=== PATIENT | female | born 1935 | race Caucasian/White ===

== ENCOUNTER 2022-02-13 23:45 | Inpatient (IN) | payer OTHER ==
[~2022-02-13] VITALS: Ht 167.6 cm; Wt 47.6 kg
[~2022-02-13 23:45] MED LIST: Keflex500 MG PO; LISI20 PO; METOPROLOL TART25 MG PO
[2022-02-14 02:05] LABS: BASOPHILS ABSOLUTE AUTO 0.07 K/mm3 (0.00-0.23); BASOPHILS PERCENT AUTO 1 % (0-2); EOSINOPHILS ABSOLUTE AUTO 0.07 K/mm3 (0.00-0.68); EOSINOPHILS PERCENT AUTO 1 % (0-6); Hematocrit 38.8 % (33.0-51.0); Hemoglobin 13.1 g/dL (11.5-16.0); IMMATURE GRAN ABSOLUTE AUTO 0.17 K/mm3 (0.00-0.10); IMMATURE GRAN PERCENT AUTO 1 % (0-1); LYMPHOCYTES ABSOLUTE AUTO 0.87 K/mm3 (0.84-5.20); LYMPHOCYTES PERCENT AUTO 7 % (21-46); MONOCYTES ABSOLUTE AUTO 1.09 K/mm3 (0.16-1.47); MONOCYTES PERCENT AUTO 9 % (4-13); Mean Corpuscular HGB 28.8 pg (26.0-34.0); Mean Corpuscular HGB Conc 33.8 g/dL (31.5-36.5); Mean Corpuscular Volume 85 fL (80-100); Mean Platelet Volume 9.9 fL (9.1-12.4); NEUTROPHILS ABSOLUTE AUTO 10.54 K/mm3 (1.96-9.15); NEUTROPHILS PERCENT AUTO 82 % (41-73); Platelet Count 228 K/mm3 (150-400); RDW Coefficient Variation 15.3 % (11.7-14.2); RDW Standard Deviation 47.7 fL (35.1-46.3); Red Blood Cell Count 4.55 M/mm3 (3.80-5.20); White Blood Cell Count 12.81 K/mm3 (4.00-11.30)
[2022-02-14 02:10] LABS: International Normalized Ratio 1.35; Prothrombin Time Results 13.9 Sec (9.7-11.5)
[2022-02-14 02:12] LABS: Bun/Creatinine Ratio 24.1 (12.0-20.0); Calcium, Blood 8.8 mg/dL (8.5-10.1); Creatinine, Blood 0.66 mg/dL (0.40-1.00); Potassium, Blood 3.6 mmol/L (3.5-5.5)
[2022-02-14] MEDS ORDERED: Lisinopril2.5 MG (03:27)
--- NOTE | 2022-02-14 05:42 | NUR ---
SHIFT SUMMARY; PATIENT ARRIVED TO MEDICAL FLOOR APPROX 4AM TODAY. SHE IS AO X 4. HOWEVER WAS VERY UNCOMFORTABLE COMPLAINING OF SPASMS IN HER RIGHT LEG FROM HER RIGHT HIP FRACTURE. COMES TO ROOM TO SEE PAITENT AND VERBAL ORDER FOR HARRIS CATHETER PRE SURGICAL AND VALIUM 2.5 WITH FENTNYL 50MCG IVP. PATIENT TOLERATED WELL AND EXPERIENCED ALMOST IMMEDIATE RELIEF. AT THIS TIME SHE IS RESTING COMFORTABLY EYES CLOSED BREATHING EVEN AND UNLABORED. PATIENT FELL AT HOME LANDING ON HER RIGHT SIDE. SHE CALLED EMS AND WAS TRANSPORTED TO HOSPITAL. SHE HAS A 20GAUGE IN HER RIGHT WRIST. IV FLUIDS 75ML HOUR PER ORDER. SHE IS NPO. SHE IS AO X 4. ON ROOM AIR AND NO SKIN ISSUES ARE NOTED. HER RIGHT LEG IS APPROX 6 INCHES SHORTER THAN LEFT AND HER FOOT IS TURNED OUT. HER PULSES ARE STRONG IN FEET. CONSULT CALLED TO ORTHOPEDICS ANSWERING SERVICE.
[2022-02-14 05:54] LABS: Source, Urine Straight Cath
[2022-02-14 06:00] LABS: Appearance, Urine Clear (Clear); Bilirubin, Urine Neg (Neg); Blood, Urine 2+ (Neg); Color, Urine Yellow (P-Yellow); Glucose Qualitative, Urine Neg (Neg); Ketones, Urine Neg (Neg); Leukocyte Esterase, Urine Neg (Neg); Nitrite, Urine Neg (Neg); Protein, Urine Neg (Neg); Urobilinogen, Urine NORM (Normal)
[2022-02-14 06:10] LABS: Bacteria Rare /hpf; Squamous Epithelial Cells Rare /hpf (Few); White Blood Cells, Urine 0-2 /hpf (0-5)
[2022-02-14 09:16] LABS: Influenza A, PCR NEGATIVE (NEGATIVE); Influenza B, PCR NEGATIVE (NEGATIVE); Resp Syncytial Virus, PCR NEGATIVE (NEGATIVE); SARS-Cov-2 (COVID-19) PCR, MMC NEGATIVE (NEGATIVE)
[2022-02-14] MEDS ORDERED: HYDCHL12.5 PO (15:15)
--- NOTE | 2022-02-14 18:12 | NUR ---
02/14/22 181 Valerie Jon PT ENTERED OR WITH HARRIS CATHETER
--- NOTE | 2022-02-14 21:01 | NUR ---
POST OP PT ARRIVED TO [facility] FROM PACU CLOSE TO 1999. PT IS RECOVERING WELL. PT ON 2L O2 TO KEEPS SATS ABOVE 90% ANESTHESIA WEARS OFF. PT MEDICATED WITH IV TORADOL SHORTLY BEFORE ARRIVING TO THE UNIT, PAIN WELL CONTROLLED AT THIS TIME. PT HAS NO N/V. AQUACEL DRESSING INTACT TO RIGHT HIP, WNL. PT APPEARS TO BE RESTING COMFORTABLY.
[2022-02-15 04:22] LABS: BASOPHILS ABSOLUTE AUTO 0.01 K/mm3 (0.00-0.23); BASOPHILS PERCENT AUTO 0 % (0-2); EOSINOPHILS PERCENT AUTO 0 % (0-6); Hematocrit 33.3 % (33.0-51.0); Hemoglobin 10.8 g/dL (11.5-16.0); IMMATURE GRAN ABSOLUTE AUTO 0.06 K/mm3 (0.00-0.10); IMMATURE GRAN PERCENT AUTO 1 % (0-1); LYMPHOCYTES ABSOLUTE AUTO 0.41 K/mm3 (0.84-5.20); LYMPHOCYTES PERCENT AUTO 4 % (21-46); MONOCYTES ABSOLUTE AUTO 0.68 K/mm3 (0.16-1.47); MONOCYTES PERCENT AUTO 7 % (4-13); Mean Corpuscular HGB 28.4 pg (26.0-34.0); Mean Corpuscular HGB Conc 32.4 g/dL (31.5-36.5); Mean Corpuscular Volume 88 fL (80-100); Mean Platelet Volume 9.7 fL (9.1-12.4); NEUTROPHILS ABSOLUTE AUTO 8.71 K/mm3 (1.96-9.15); NEUTROPHILS PERCENT AUTO 88 % (41-73); Platelet Count 181 K/mm3 (150-400); RDW Coefficient Variation 15.6 % (11.7-14.2); RDW Standard Deviation 50.4 fL (35.1-46.3); White Blood Cell Count 9.87 K/mm3 (4.00-11.30)
[2022-02-15 04:53] LABS: Albumin/Globulin Ratio 1.2 (0.8-1.8); Bilirubin, Total 1.4 mg/dL (0.1-1.0); Bun/Creatinine Ratio 23.4 (12.0-20.0); Calcium, Blood 8.4 mg/dL (8.5-10.1); Creatinine, Blood 0.73 mg/dL (0.40-1.00); Globulin, Blood 2.6 g/dL (2.2-4.0); Magnesium, Blood 2.4 mg/dL (1.6-2.4); Potassium, Blood 4.7 mmol/L (3.5-5.5); Total Protein, Blood 5.6 g/dL (6.4-8.2)
--- NOTE | 2022-02-15 05:26 | NUR ---
SHIFT SUMMARY PT POD 0 RIGHT HIP REPAIR, SHE HAS DONE WELL POST OP AND HAS NOT COMPLAINED OF ANY PAIN. PT DROWSY AND HAS SLEPT MOST OF THE SHIFT, BUT EASILY AWAKES AND CONVERSES WITH ME. NO NAUSEA OR VOMITTING, BP A LITTLE SOFTER SINCE SURGERY BUT MAP WNL. NO S/S OF BLEEDING. DRESSING INACT TO RIGHT HIP WITH SCANT DRAINAGE. OTHER SYSTEMS WNL, PT AFEBRILE. HARRIS PATENT AND DRAINING. BED IN LOWEST POSITION, CALL LIGHT WITHIN REACH.
--- NOTE | 2022-02-15 11:42 | NUR ---
DR LAWSON IN TO SEE PT.
--- NOTE | 2022-02-15 14:42 | NUR ---
SHIFT SUMMARY PT A&OX4, VSS/RA, MELLISA PO, VOIDING BSC, AMB SBA FWW/GB TTWB TO CHAIR/BSC, PAIN MANAGED WITH NORCO 5 MG PRN. EVAL'D BY PHYSICAL THERAPY, SNF RECOMMENDED. POD1 R HIP NAIL, AQUACEL CDI. WILL REPORT TO ONCOMING NOC RN.
--- NOTE | 2022-02-16 04:11 | NUR ---
SHIFT SUMMARY NO ACUTE CHANGES THIS SHIFT. PT RESTED WELL. AQUACEL DRESSING TO RIGHT HIP APPEARS DRY AND INTACT. UP TO BSC 1-2 MAX ASSIST TTWB WITH FWW + GB. 1 DEXTER FOR PAIN MANAGMENT. IV SL. USES CALL LIGHT APPRORIATELY.
[2022-02-16 05:08] LABS: BASOPHILS ABSOLUTE AUTO 0.03 K/mm3 (0.00-0.23); BASOPHILS PERCENT AUTO 0 % (0-2); EOSINOPHILS ABSOLUTE AUTO 0.06 K/mm3 (0.00-0.68); EOSINOPHILS PERCENT AUTO 1 % (0-6); Hematocrit 27.9 % (33.0-51.0); Hemoglobin 9.3 g/dL (11.5-16.0); IMMATURE GRAN ABSOLUTE AUTO 0.03 K/mm3 (0.00-0.10); IMMATURE GRAN PERCENT AUTO 0 % (0-1); LYMPHOCYTES ABSOLUTE AUTO 1.03 K/mm3 (0.84-5.20); LYMPHOCYTES PERCENT AUTO 11 % (21-46); MONOCYTES ABSOLUTE AUTO 1.11 K/mm3 (0.16-1.47); MONOCYTES PERCENT AUTO 12 % (4-13); Mean Corpuscular HGB 28.6 pg (26.0-34.0); Mean Corpuscular HGB Conc 33.3 g/dL (31.5-36.5); Mean Corpuscular Volume 86 fL (80-100); Mean Platelet Volume 10.3 fL (9.1-12.4); NEUTROPHILS ABSOLUTE AUTO 6.81 K/mm3 (1.96-9.15); NEUTROPHILS PERCENT AUTO 75 % (41-73); Platelet Count 177 K/mm3 (150-400); RDW Coefficient Variation 14.9 % (11.7-14.2); RDW Standard Deviation 47.2 fL (35.1-46.3); Red Blood Cell Count 3.25 M/mm3 (3.80-5.20); White Blood Cell Count 9.07 K/mm3 (4.00-11.30)
[2022-02-16 05:31] LABS: Bun/Creatinine Ratio 25.8 (12.0-20.0); Calcium, Blood 8.1 mg/dL (8.5-10.1); Creatinine, Blood 0.7 mg/dL (0.40-1.00); Potassium, Blood 4.2 mmol/L (3.5-5.5)
--- NOTE | 2022-02-16 14:11 | NUR ---
Upon receiving a spiritual care referral, I visit pt. Pt has Soni white, bedside. Pt explains about the events that led to her hospitalization and about the plan to transport her to [facility]. They talk about the solid family and katlyn support she has. Pt voices her gratitude for the love and prayers that surround her during this challenging time. I normalize pt's experience and provide therapeutic listening and prayer. Pt and Soni respond well and express appreciation for the visit.
[2022-02-16 17:17] LABS: Influenza A, PCR NEGATIVE (NEGATIVE); Influenza B, PCR NEGATIVE (NEGATIVE); Resp Syncytial Virus, PCR NEGATIVE (NEGATIVE); SARS-Cov-2 (COVID-19) PCR, MMC NEGATIVE (NEGATIVE)
--- NOTE | 2022-02-16 17:41 | NUR ---
DISCHARGE POD 2 GAMMA NAIL OF R HIP, AQUACEL INPLACE, C/D/I. 1P STAND/PIVOT ASSIST WITH FWW & GB, TTWB. PATIENT TOLERATING WELL, MINIMAL PAIN, MEDICATED WITH NORCO PER EMAR. VSS ON RA. EATING, DRINKING, & VOIDING WELL. REPORT CALLED TO YANET HENRIQUEZ AT [facility]. ESCORTED OUT VIA W/C WITH TRANSPORT.
== END 2022-02-16 17:45 | DRG 481 ==
LOC: ER 23:45 → MEDS 02-14 02:38 → SURS 02-14 02:38 → MEDS 02-14 03:42 → SURS 02-14 16:12
PROVIDERS: Family Medicine; Orthopaedic Surgery; Student in an Organized Health Care Education/Training Program; ADMIT Internal Medicine
PROC: 0QS636Z Reposition Right Upper Femur with Intramedullary Internal Fixation Device, Percutaneous Approach (ICD-10-PCS; principal; 2022-02-14 15:15)
DX: S72.141A Displaced intertrochanteric fracture of right femur, initial encounter for closed fracture (principal); J96.11 Chronic respiratory failure with hypoxia; R64 Cachexia; Z68.1 Body mass index [BMI] 19.9 or less, adult; M80.88XA Other osteoporosis with current pathological fracture, vertebra(e), initial encounter for fracture; Z20.822 Contact with and (suspected) exposure to COVID-19; F17.210 Nicotine dependence, cigarettes, uncomplicated; J40 Bronchitis, not specified as acute or chronic; D64.89 Other specified anemias; I10 Essential (primary) hypertension; Z87.440 Personal history of urinary (tract) infections; Z90.49 Acquired absence of other specified parts of digestive tract; Z90.710 Acquired absence of both cervix and uterus; Z79.899 Other long term (current) drug therapy; W01.0XXA Fall on same level from slipping, tripping and stumbling without subsequent striking against object, initial encounter; Y92.009 Unspecified place in unspecified non-institutional (private) residence as the place of occurrence of the external cause
CPT/HCPCS: 0241U; 36415; 72128; 72192; 73502; 73552; 80048; 80053; 81001; 83735; 84100; 85025; 85610; 85730; 93005; 93010; 94760; 96374; 96375; 97110; 97116; 97162; 97166; 97530; 97535; 99285-25; A9270; C1713; J0690; J1100; J1885; J2270; J2370; J2405; J2704; J3010; J3360; J7030; J7120

== ENCOUNTER → 2023-08-06 | Outpatient (CLI) | payer OTHER ==
[~2023-08-06] MED LIST changes: +HYDCHL12.5 PO; +Lisinopril2.5 MG
[2023-08-08 07:08] LABS: CREATININE, SERUM 1.02 mg/dL (0.57-1.00); POTASSIUM, SERUM 4.5 mmol/L (3.5-5.2)
== END ==
LOC: LAB SHORT 15:39 → LAB 15:39
PROVIDERS: Internal Medicine
DX: I10 Essential (primary) hypertension (principal)
CPT/HCPCS: 80048

== ENCOUNTER 2024-06-25 09:24 | Emergency (ER) | payer OTHER ==
[~2024-06-25] VITALS: Ht 160 cm; Wt 59.0 kg
[2024-06-25 10:42] LABS: BASOPHILS ABSOLUTE AUTO 0.09 K/mm3 (0.00-0.23); BASOPHILS PERCENT AUTO 1 % (0-2); EOSINOPHILS ABSOLUTE AUTO 0.03 K/mm3 (0.00-0.68); EOSINOPHILS PERCENT AUTO 0 % (0-6); Hematocrit 41.8 % (33.0-51.0); Hemoglobin 13.7 g/dL (11.5-16.0); IMMATURE GRAN ABSOLUTE AUTO 0.04 K/mm3 (0.00-0.10); IMMATURE GRAN PERCENT AUTO 1 % (0-1); LYMPHOCYTES ABSOLUTE AUTO 0.96 K/mm3 (0.84-5.20); LYMPHOCYTES PERCENT AUTO 12 % (21-46); MONOCYTES PERCENT AUTO 10 % (4-13); Mean Corpuscular HGB 28.2 pg (26.0-34.0); Mean Corpuscular HGB Conc 32.8 g/dL (31.5-36.5); Mean Corpuscular Volume 86 fL (80-100); Mean Platelet Volume 9.3 fL (9.1-12.4); NEUTROPHILS ABSOLUTE AUTO 6.06 K/mm3 (1.96-9.15); NEUTROPHILS PERCENT AUTO 76 % (41-73); Platelet Count 247 K/mm3 (150-400); RDW Coefficient Variation 16.4 % (11.7-14.2); RDW Standard Deviation 50.6 fL (35.1-46.3); Red Blood Cell Count 4.85 M/mm3 (3.80-5.20); White Blood Cell Count 7.98 K/mm3 (4.00-11.30)
[2024-06-25 11:06] LABS: Albumin, Blood 3.3 g/dL (3.4-5.0); Albumin/Globulin Ratio 1.1 (0.8-1.8); Bilirubin, Total 1.1 mg/dL (0.1-1.0); Bun/Creatinine Ratio 25.1 (12.0-20.0); Calcium, Blood 9.6 mg/dL (8.5-10.1); Creatinine, Blood 0.92 mg/dL (0.40-1.00); Globulin, Blood 2.9 g/dL (2.2-4.0); Magnesium, Blood 2.3 mg/dL (1.6-2.4); Potassium, Blood 4.4 mmol/L (3.5-5.5); Total Protein, Blood 6.2 g/dL (6.4-8.2)
[2024-06-25] MEDS ORDERED: NS 1,000 ML IV SCH (12:50)
[2024-06-25 13:39] LABS: Source, Urine Clean Catch
[2024-06-25 13:44] LABS: Appearance, Urine Clear (Clear); Bilirubin, Urine Neg (Neg); Blood, Urine 2+ (Neg); Color, Urine Amber (P-Yellow); Glucose Qualitative, Urine 2+ (Neg); Ketones, Urine Neg (Neg); Leukocyte Esterase, Urine Neg (Neg); Nitrite, Urine Neg (Neg); Protein, Urine 2+ (Neg); Urobilinogen, Urine 1+ (Normal)
[2024-06-25 13:52] LABS: Bacteria Few /hpf; Squamous Epithelial Cells Few /hpf (Few); White Blood Cells, Urine 0-2 /hpf (0-5)
[2024-06-25 13:53] LABS: Hyaline Casts 0-2 /lpf (0-2)
[2024-06-25 15:15] VITALS: BP 139/76
== END 2024-06-25 15:50 | disposition home or self-care (01) ==
LOC: ER 09:24
PROVIDERS: Physician Assistant; Student in an Organized Health Care Education/Training Program
DX: R55 Syncope and collapse (principal); J44.9 Chronic obstructive pulmonary disease, unspecified; F17.200 Nicotine dependence, unspecified, uncomplicated; Z79.899 Other long term (current) drug therapy; I10 Essential (primary) hypertension
CPT/HCPCS: 80053; 81001; 83735; 85025; 93005; 93010; 96360; 99285-25; J7030

== ENCOUNTER 2025-01-01 04:22 | Inpatient (IN) | payer OTHER ==
[~2025-01-01] VITALS: Ht 152.4 cm; Wt 41.2 kg
[2025-01-01 04:39] LABS: pH Blood Venous 7.35 (7.34-7.37)
[2025-01-01] MEDS ORDERED: CefTRIAXone Sodium 1,000 MG in NS 50 ML IV ONE (04:40)
[2025-01-01 04:47] LABS: BASOPHILS ABSOLUTE AUTO 0.09 K/mm3 (0.00-0.23); BASOPHILS PERCENT AUTO 1 % (0-2); EOSINOPHILS ABSOLUTE AUTO 0.23 K/mm3 (0.00-0.68); EOSINOPHILS PERCENT AUTO 3 % (0-6); Hematocrit 45.1 % (33.0-51.0); Hemoglobin 14.4 g/dL (11.5-16.0); IMMATURE GRAN ABSOLUTE AUTO 0.03 K/mm3 (0.00-0.10); IMMATURE GRAN PERCENT AUTO 0 % (0-1); LYMPHOCYTES ABSOLUTE AUTO 2.95 K/mm3 (0.84-5.20); LYMPHOCYTES PERCENT AUTO 36 % (21-46); MONOCYTES ABSOLUTE AUTO 0.69 K/mm3 (0.16-1.47); MONOCYTES PERCENT AUTO 8 % (4-13); Mean Corpuscular HGB Conc 31.9 g/dL (31.5-36.5); Mean Corpuscular Volume 88 fL (80-100); NEUTROPHILS ABSOLUTE AUTO 4.26 K/mm3 (1.96-9.15); NEUTROPHILS PERCENT AUTO 52 % (41-73); NRBC ABSOLUTE 0.00 K/mm3 (0.00-0.02); NRBC Auto 0.0 /100 WBC (0.0-0.2); Platelet Count 209 K/mm3 (150-400); RDW Coefficient Variation 16.4 % (11.7-14.2); RDW Standard Deviation 52.4 fL (35.1-46.3)
[2025-01-01 05:02] LABS: Alanine Aminotransfer (ALT/SGP 31.0 U/L (12-78); Albumin, Blood 3.8 g/dL (3.4-5.0); Albumin/Globulin Ratio 1.3 (0.8-1.8); Anion Gap 5.0 mmol/L (3-11); Aspartate Aminotrans (AST/SGOT 29.0 U/L (12-37); Bilirubin, Total 1.1 mg/dL (0.1-1.0); Blood Urea Nitrogen 19.0 mg/dL (8-24); CO2, Blood 31.0 mmol/L (21-32); Calcium, Blood 9.8 mg/dL (8.5-10.1); Chloride, Blood 108.0 mmol/L (98-108); Creatinine, Blood 0.88 mg/dL (0.40-1.00); Globulin, Blood 3.0 g/dL (2.2-4.0); Glucose, Blood 141.0 mg/dL (70-99); Magnesium, Blood 2.2 mg/dL (1.6-2.4); Phosphorus, Blood 3.6 mg/dL (2.5-4.9); Potassium, Blood 4.0 mmol/L (3.5-5.5); Sodium, Blood 140.0 mmol/L (136-145); Total Protein, Blood 6.8 g/dL (6.4-8.2)
[2025-01-01 05:03] LABS: D-Dimer, Quantitative 1.95 mg/L FEU (0.00-0.52)
[2025-01-01] MEDS ORDERED: Ondansetron HCl 2 MG / ML 2ML Vial IV PRN (06:15)
[2025-01-01 08:00] LABS: Influenza A, PCR NEGATIVE (NEGATIVE); Influenza B, PCR NEGATIVE (NEGATIVE); Resp Syncytial Virus, PCR NEGATIVE (NEGATIVE); SARS-Cov-2 (COVID-19) PCR, MMC NEGATIVE (NEGATIVE)
[2025-01-01 08:52] LABS: Source, Urine Clean Catch
[2025-01-01] MEDS ORDERED: Enoxaparin 40 MG/0.4 ML SYR SC SCH (09:00)
[2025-01-01 09:05] LABS: Bilirubin, Urine Neg (Neg); Color, Urine Yellow (P-Yellow); Glucose Qualitative, Urine Neg (Neg); Ketones, Urine Neg (Neg); Leukocyte Esterase, Urine Neg (Neg); Protein, Urine Neg (Neg); Specific Gravity, Urine 1.015 (1.003-1.022); Urobilinogen, Urine NORM (Normal)
[2025-01-01 09:15] LABS: White Blood Cells, Urine 0-2 /hpf (0-5)
[2025-01-01 13:03] VITALS: BP 149/64
[2025-01-01] MEDS ORDERED: MIRT15ST PO (13:27)
[2025-01-01] MEDS ORDERED: SPIR25 PO (13:27)
[2025-01-01] MEDS ORDERED: FOLI1 PO (13:27)
[2025-01-01] MEDS ORDERED: Ipratropium/Albuterol SulF 2.5-0.5MG/3 ML Amp INH PRN (13:50)
--- NOTE | 2025-01-01 14:27 | NUR ---
ADMISSION: PT ARRIVED TO PCU 18 AT 1240 VIA GURNEY. PT ABLE TO TRANSFER VIA ONE PERSON ASSIST. PT ALERT AND ORIENTED X4, ABLE TO FOLLOW COMMANDS AND MAKE NEEDS KNOWN. STRENGTH EQUAL BILATERALLY. PEERLA. BP AND HR STABLE. AFEBRILE. SPO2 >96% ON ROOM AIR. PT ADMITTED FOR PNEUMOTHROAX, CHEST TUBE PRESENT TO R. LATERAL. CURRENTLY TO WATER SEAL, SEROSANGUINEOUS FLUID NOTED. PT WITH 4/10 PAIN AT INSERTION SITE. ABD SOFT, NON TENDER, BOWEL SOUNDS +. PT CONT OF URINE, ABLE TO TRANSFER TO BSC VIA ONE PERSON ASSIST. PULSES STRONG AND EQUAL THROUGHOUT. SON AND DAUGHTER IN LAW AT BEDSIDE, UPDATED ON PT PLAN OF CARE. ORIENTED TO ROOM AND CALL LIGHT SYSTEM, BED IN LOW, CALL LIGHT IN REACH.
[2025-01-01 15:28] VITALS: BP 131/58
--- NOTE | 2025-01-01 17:09 | NUR ---
SHIFT SUMMARY: PT WITH NO ACUTE CHANGES SINCE ADMISSION. CHEST TUBE REMAINS TO WATER SEAL. SPO2 >96% ON ROOM AIR. DENIES PAIN AT THIS TIME. PT ABLE USE BSC VIA ONE PERSON ASSIST. SON AND DAUGHTER IN LAW UPDATED ON PT PLAN OF CARE. BED IN LOW, CALL LIGHT IN REACH, WILL REPORT TO ONCOMING RN.
[2025-01-01 20:44] VITALS: BP 142/57
[2025-01-02 00:19] VITALS: BP 156/60
[2025-01-02 04:46] VITALS: BP 149/65
[2025-01-02 05:12] LABS: BASOPHILS ABSOLUTE AUTO 0.06 K/mm3 (0.00-0.23); BASOPHILS PERCENT AUTO 1 % (0-2); EOSINOPHILS ABSOLUTE AUTO 0.08 K/mm3 (0.00-0.68); EOSINOPHILS PERCENT AUTO 1 % (0-6); Hematocrit 42.5 % (33.0-51.0); Hemoglobin 14.1 g/dL (11.5-16.0); IMMATURE GRAN ABSOLUTE AUTO 0.02 K/mm3 (0.00-0.10); IMMATURE GRAN PERCENT AUTO 0 % (0-1); LYMPHOCYTES ABSOLUTE AUTO 1.35 K/mm3 (0.84-5.20); LYMPHOCYTES PERCENT AUTO 19 % (21-46); MONOCYTES ABSOLUTE AUTO 0.79 K/mm3 (0.16-1.47); MONOCYTES PERCENT AUTO 11 % (4-13); Mean Corpuscular HGB Conc 33.2 g/dL (31.5-36.5); Mean Corpuscular Volume 84 fL (80-100); NEUTROPHILS ABSOLUTE AUTO 4.91 K/mm3 (1.96-9.15); NEUTROPHILS PERCENT AUTO 68 % (41-73); NRBC ABSOLUTE 0.00 K/mm3 (0.00-0.02); NRBC Auto 0.0 /100 WBC (0.0-0.2); Platelet Count 237 K/mm3 (150-400); RDW Coefficient Variation 16.2 % (11.7-14.2); RDW Standard Deviation 49.4 fL (35.1-46.3)
[2025-01-02 05:49] LABS: Alanine Aminotransfer (ALT/SGP 24.0 U/L (12-78); Albumin, Blood 3.2 g/dL (3.4-5.0); Albumin/Globulin Ratio 1.2 (0.8-1.8); Anion Gap 4.0 mmol/L (3-11); Aspartate Aminotrans (AST/SGOT 25.0 U/L (12-37); Bilirubin, Total 2.0 mg/dL (0.1-1.0); Blood Urea Nitrogen 13.0 mg/dL (8-24); CO2, Blood 32.0 mmol/L (21-32); Calcium, Blood 8.6 mg/dL (8.5-10.1); Chloride, Blood 104.0 mmol/L (98-108); Creatinine, Blood 0.65 mg/dL (0.40-1.00); Globulin, Blood 2.7 g/dL (2.2-4.0); Glucose, Blood 100.0 mg/dL (70-99); Magnesium, Blood 2.0 mg/dL (1.6-2.4); Potassium, Blood 3.8 mmol/L (3.5-5.5); Sodium, Blood 136.0 mmol/L (136-145); Total Protein, Blood 5.9 g/dL (6.4-8.2)
--- NOTE | 2025-01-02 06:29 | NUR ---
SHIFT SUMMARY: PT IS A&OX3, WAINWRIGHT, PLEASANT AND COOPERATIVE WITH CARE. VSS ON RA. SR IN THE 70'S. C/O PAIN AT THE INSERTION SITE, OF HER CHEST TUBE, MEDICATED WITH PRN 650 MG PO TYLENOL. CHEST TUBE TO WATER SEAL, 10 MLS OUT OF SEROSANGUINEOUS DRAINAGE. PT TOLERATING A HEART HEALTHY DIET. X1 ASSIST TO BSC, VOIDING LARGE AMOUNTS OF CLEAR, YELLOW URINE. NO BM THIS SHIFT, BOWEL CARE ADMINISTERED. PT'S PACK OF CIGARETTES AND ALLERGIST/IMMUNOLOGIST FELL OUT OF ROBE POCKET ON THE BED. THEY ARE NOW LOCKED IN PT'S MEDICATION DRAWER. NO SIGNS OF ALCOHOL W/D THIS SHIFT. BED IN LOWEST POSITION, CALL LIGHT WITHIN REACH. PT DOES NOT USE HER CALL LIGHT APPROPRIATELY, BED ALARM SET FOR PT'S SAFETY.
[2025-01-02 08:58] VITALS: BP 119/68
--- NOTE | 2025-01-02 08:58 | NUR ---
Pt sitting up in bed, no distress, no dsypnea noted nor reported by the patient. Dr. Pearl here, states that he had conversation with the patient about her options. Chest tube is clamped and tubing removed by him. Pt states that she does not want to have surgery. Plan is to recheck the chest xray this afternoon, and Dr. Pearl will come to talk with the patient at that time.
[2025-01-02 10:34] VITALS: BP 125/56
--- NOTE | 2025-01-02 10:38 | NUR ---
Dr. Pearl here, saw the patient and spoke with her and her son Patrick about Pleurodesis, which the pt is agreeable to. Waiting on repeat CXR at 1400.
--- NOTE | 2025-01-02 14:33 | NUR ---
Pt has been cooperative and alert all day long. She is very forgetful. She and her son spoke with Dr. Pearl and plan is for pleurodesis today after results of CT scan are in. Family at this time is in the room, waiting. Her chest tube has been clamped and disconnected by plant and maintenance technician and the pt has had no hypoxia, no dyspnea, and clear lung sounds. She does however, have diminished lung sounds on the right side, but no respiratory distress.
[2025-01-02 15:18] VITALS: BP 135/63
--- NOTE | 2025-01-02 15:30 | NUR ---
Dr. Pearl spoke with family. Chest tube was reconnected to suction. Plan for pleurodesis tomorrow.
--- NOTE | 2025-01-02 18:29 | NUR ---
Pt set the bed alarm off, getting up out of bed on the side opposite her chest tube. Staff assisted her back into bed. She is pleasantly confused.
[2025-01-02 20:14] VITALS: BP 141/68
[2025-01-03] VITALS (7 sets, daily range): BP systolic 106–166; BP diastolic 54–74
--- NOTE | 2025-01-03 06:56 | NUR ---
SHIFT SUMMARY: PT IS A&OX3, TORRES MARTINEZ, VERY FORGETFUL, BUT COOPERATIVE WITH CARE. PT'S BP HAS SLOWLY BEEN INCREASING, SYS >160, PT'S HOME MEDICATIONS HAVE NOT BEEN RESTARTED SINCE SHE HAS BEEN HERE. REMAINS ON RA. SR IN THE 70'S. DENIES PAIN. CHEST TUBE TO SUCTION, DRAINING SMALL AMOUNT OF SEROUS FLUID. PT TOLERATING A HEART HEALTHY DIET. X1 ASSIST TO BSC, VOIDING LARGE AMOUNTS OF CLEAR, YELLOW URINE. NO BM THIS SHIFT, BOWEL CARE ADMINISTERED. BED IN LOWEST POSITION, CALL LIGHT WITHIN REACH. PT DOES NOT USE HER CALL LIGHT APPROPRIATELY, BED/CHAIR ALARM SET FOR PT'S SAFETY. FREQUENT ROUNDING COMPLETE.
--- NOTE | 2025-01-03 07:18 | NUR ---
ASSUMPTION NOTE: THIS RN TO ASSUME CARE OF PATIENT. PATIENT SITTING UP IN BED WATCHING TV. DENIED ANY CHEST PAIN/PRESSURE. IS ALERT AND ORIENTED X4 AND COOPERATIVE IN H CARE. VITAL SIGNS STABLE. PATIENT ASKING ABOUT HER DAUGHTER AND STATED SHE IS TO COME DOWN TODAY. HAS CALL LIGHT WITHIN REACH & BED IN LOWEST POSITION STATING NOTHING ELSE IS NEEDED AT THIS TIME.
--- NOTE | 2025-01-03 08:25 | NUR ---
ROUNDED: ROUNDED AND SPOKE WITH PT REGARDING STARTING HER HOME MEDS AND THE PROCEDURE THAT WAS MENTIONED BY THE LUNG SPECIALIST. STATED WE WILL WAIT TO HEAR FROM PULM FOR A DATE OF DISCAHRGE BUT HERE WITHIN A FEW DAYS.
[2025-01-03] MEDS ORDERED: Folic Acid 1 MG TAB PO SCH (09:00)
--- NOTE | 2025-01-03 09:23 | NUR ---
ROUNDED: NIALL ROUNDED ON PT. LOOKED AT TUBE AND RE DRESSED IT AFTER PULLING SOME OF THE TUBE OUT. PT AWARE SHE WILL NOT BE GOING HOME TODAY AND WILL LOOK AT THE CHEST X-RAY TOMORROW.
--- NOTE | 2025-01-03 16:24 | NUR ---
ROUNDED: MD STEELE ROUNDED ON PT AND DISCONNECTED HER CHEST TUBE FROM SUCTION AND CLOSED THE SYSTEM OFF TO ALLOW PATIENT TO MOVE AROUND BETTER.
--- NOTE | 2025-01-03 16:59 | NUR ---
SHIFT SUMMARY: patient is alert and oriented x4 & cooperative with her care, is able to make needs known & uses call light appropriately. Pt is satting >92% on room air. On tele showing sinus rhythm to sinus tach occasionally 90-115. Pt has chest tube that is closed off currently by stopcock. Pt family at bedside throughout shift. Pt was able to sit up in chair with chair alarm on throughout the day due to impulsivity. Pt was able to get some rest throughout the shift. Has call light within reach, bed in lowest position & stating nothing else is needed at this time. Pt aware plan will be to get a chest x-ray in the morning & pending those results may get to go home tomorrow.
[2025-01-04 04:19] VITALS: BP 146/55
[2025-01-04 08:50] VITALS: BP 111/61
[2025-01-04 11:28] VITALS: BP 123/62
[2025-01-04] MEDS ORDERED: ACET325 PO (14:34)
--- NOTE | 2025-01-04 14:58 | NUR ---
PT DISCHARGED @ ~1440. PROVIDED ALL RELEVANT DISCHARGE INFORMATION, REVIEWED HOME MEDS, ENCOURAGED CALLING WITH ANY QUESTIONS, ENCOURAGED SCHEDULING F/U W/ DR. TABARES PCP SOON POSSIBLE. PT HAD NO FURTHER QUESTIONS.
== END 2025-01-04 16:26 | disposition home health service (06) | DRG 199 ==
LOC: ER 04:22 → ERHOLD 06:11 → PCU 06:11
PROVIDERS: Emergency Medicine; ADMIT Student in an Organized Health Care Education/Training Program
PROC: 0W9930Z Drainage of Right Pleural Cavity with Drainage Device, Percutaneous Approach (ICD-10-PCS; principal; 2025-01-01)
PROC: 5A09357 Assistance with Respiratory Ventilation, Less than 24 Consecutive Hours, Continuous Positive Airway Pressure (ICD-10-PCS; 2025-01-01)
PROC: 3E03329 Introduction of Other Anti-infective into Peripheral Vein, Percutaneous Approach (ICD-10-PCS; 2025-01-01)
DX: J93.11 Primary spontaneous pneumothorax (principal); J96.01 Acute respiratory failure with hypoxia; Z66 Do not resuscitate; I10 Essential (primary) hypertension; F17.210 Nicotine dependence, cigarettes, uncomplicated; F10.20 Alcohol dependence, uncomplicated; J44.9 Chronic obstructive pulmonary disease, unspecified; R79.89 Other specified abnormal findings of blood chemistry; Z90.89 Acquired absence of other organs; Z79.899 Other long term (current) drug therapy; Z90.49 Acquired absence of other specified parts of digestive tract; Z90.710 Acquired absence of both cervix and uterus; Z87.81 Personal history of (healed) traumatic fracture; Z99.81 Dependence on supplemental oxygen
CPT/HCPCS: 32551; 36415; 71045; 71250; 80053; 81001; 82803; 83605; 83735; 83880; 84100; 84484; 85025; 85379; 85730; 87040; 87637; 93005; 93010; 93306; 94660; 94762; 97116; 97161; 99285-25; A9270; J0456; J0696; J1650; J7050